=== PATIENT | male | born 1955 | race Hispanic/Latino ===

== ENCOUNTER 2019-01-30 06:17 | Day surgery (SDC) | payer BC ==
[2019-01-28 12:59] VITALS: BP 112/68
[2019-01-28 13:09] LABS: BASOPHILS % (AUTO) 0.4 % (0.0-5.0); EOSINOPHILS % (AUTO) 1.1 % (0.0-8.0); HEMATOCRIT 44.9 % (42-54); LYMPHOCYTES % (AUTO) 25.2 % (21.0-51.0); MEAN CORPUSCULAR HEMOGLOBIN 30.2 pg (27.0-33.0); MEAN CORPUSCULAR HGB CONC 33.4 g/dL (32.0-36.0); MEAN CORPUSCULAR VOLUME 90.4 fL (79-99); MONOCYTES % (AUTO) 10.6 % (3.0-13.0); NEUTROPHILS % (AUTO) 62.7 % (40.0-77.0); PLATELET COUNT (AUTO) 202 K/uL (130-400); RED BLOOD CELL COUNT(AUTO) 4.96 MIL/uL (4.50-6.20); RED CELL DISTRIBUTION WIDTH 13.1 % (11.0-15.5); WHITE BLOOD COUNT (AUTO) 8.4 K/uL (4.8-10.8)
[2019-01-28 13:17] LABS: APPEARANCE,URINE Clear (CLEAR); BILIRUBIN,URINE Negative (NEGATIVE); COLOR,URINE Yellow (YELLOW); GLUCOSE, URINE (UA) >=1000 mg/dL (NEGATIVE); KETONES,URINE Negative (NEGATIVE); LEUKOCYTE ESTERASE ,URINE Negative (NEGATIVE); NITRATE,URINE Negative (NEGATIVE); OCCULT BLOOD,URINE Negative (NEGATIVE); PROTEIN,URINE Negative (NEGATIVE)
[2019-01-28 13:20] LABS: CREATININE 0.8 mg/dL (0.5-1.5); POTASSIUM 4.6 mmol/L (3.5-5.1)
[2019-01-28 13:22] LABS: INR 0.96 (0.85-1.15); PARTIAL THROMBOPLASTIN TIME 25.9 SEC (26.3-35.5); PROTHROMBIN TIME 10.1 SEC (9.6-11.6)
[2019-01-28 13:36] LABS: BACTERIA,URINE Rare /HPF (None Seen); RBC,URINE 0-1 /HPF (0-1); SQUAMOUS EPITHELIAL CELL,UR Rare /HPF (0-2); WBC,URINE 0-1 /HPF (0-1)
[~2019-01-30] VITALS: Ht 165.1 cm; Wt 69.0 kg
[2019-01-30] VITALS (22 sets, daily range): BP systolic 114–145; BP diastolic 63–81
[~2019-01-30 06:17] MED LIST: ASPI-1005 PO; ATOR40TA71 PO; ENAL5TAB PO; ISOS30TA6 PO; METF-444 PO
[2019-01-30] MEDS ORDERED: DAPA10TA PO (07:08)
[2019-01-30] MEDS ORDERED: SITA100T12 PO (07:08)
[2019-01-30] MEDS ORDERED: ASPI81TA40 PO (07:09)
--- NOTE | 2019-01-30 07:43 | NUR ---
PROCEDURE PT TAKEN TO PUBLIC SPEAKER FOR SCHEDULED PROCEDURE VIA BED,NO DISTRESS NOTED. NO FAMILY AT BEDSIDE AT THIS TIME
[2019-01-30] MEDS ORDERED: VERAPAMIL HCL 2.5 MG/ML VIAL ONE (07:45)
[2019-01-30] MEDS ORDERED: HEPARIN SODIUM 1000UNIT/ML 10ML VIAL ONE (07:45)
[2019-01-30] MEDS ORDERED: NITROGLYCERIN 5 MG/ML 10 ML VIAL IV ONE (07:46)
[2019-01-30] MEDS ORDERED: LIDOCAINE HCL 2% 20ML ONE (07:46)
[2019-01-30] MEDS ORDERED: IOHEXOL-350 50ML VIAL IV ONE (07:46)
[2019-01-30] MEDS ORDERED: BIVALIRUDIN 250 MG/VIAL IV ONE (07:47)
[2019-01-30] MEDS ORDERED: IOHEXOL 350 MG/ML 100ML INFUS..BTL IV ONE (08:00)
[2019-01-30] MEDS ORDERED: SODIUM CHLORIDE 0.9% 1000ML 1,000 ML IV SCH ×2 (08:00→10:02)
[2019-01-30] MEDS ORDERED: ASPIRIN 81MG TAB.CHEW ONE (08:52)
[2019-01-30] MEDS ORDERED: TICAGRELOR 90 MG TABLET ONE (08:52)
[2019-01-30] MEDS ORDERED: IOHEXOL-350 75 ML VIAL IV ONE (09:18)
[2019-01-30] MEDS ORDERED: GLUCAGON 1MG KIT 1 MG ML IM PRN (10:15)
[2019-01-30] MEDS ORDERED: NITROGLYCERIN 0.4 MG SL TAB SL PRN (10:15)
[2019-01-30] MEDS ORDERED: METOPROLOL TARTRATE 1 MG/ML 5ML VIAL IV PRN (10:15)
[2019-01-30] MEDS ORDERED: DEXTROSE 50%-WATER 50 ML DISP.SYRIN IV PRN (10:15)
--- NOTE | 2019-01-30 10:20 | NUR ---
POST RECEIVED PT BACK FROM [facility], S/P [facility] WITH STENT PLACEMENT X 2, RIGHT RADIAL WITH TBAND IN PLACE WITH 11ML AIR PER REPORT. NO BLEEDING OR HEMATOMA ., RIGHT GROIN WITH 7FRENCH SHEATH IN PLACE. SEE POST CATH ASSESSMENT, VS STABLE ON ARRIVAL. PLAN OF CARE DISCUSS WITH PATIENT/ SPOUSE. INSTRUCTED TO KEEP BEDREST UNTIL CLEARED BY NURSE. INSTRUCTED PATIENT /SPOUSE TO CALL NURSE IF HE NEEDS ANYTHING . CALL LIGHT WITHIN REACH
--- NOTE | 2019-01-30 11:00 | NUR ---
TBAND TOTAL AIR IN T- BAND 11ML WHEN PATIENT ARRIVED - 2ML REMOVED TOTAL NOW 9ML- NO BLEEDING OR HEMATOMA TO SITE, PT MILLA WELL.
[2019-01-30] MEDS ORDERED: ATROPINE SULFATE 0.1 MG/ML 10 ML SYG IVP ONE (11:04)
--- NOTE | 2019-01-30 11:20 | NUR ---
TBAND TOTAL AIR 9ML , REMOVED 2 ML = NOW 7ML, NO BLEEDING OR HEMATOMA TO SITE, PT MILLA WELL
[2019-01-30] MEDS ORDERED: INSULIN HUMULIN R 100 UNIT/ML 3ML SQ SCH (11:30)
--- NOTE | 2019-01-30 11:35 | NUR ---
TBAND TOTAL AIR 7ML , REMOVED 2 ML = 5ML NOW , NO BLEEDING OR HEMATOMA TO SITE, PT MILLA WELL
--- NOTE | 2019-01-30 11:48 | NUR ---
line HEMOSTASIS ACHIEVED AFTER LINE PULLED TO RIGHT GROIN. DSTAT IN PLACE. NO BLEEDING OR HEMATOMA. SEE POST CATH ASSESSMENT
--- NOTE | 2019-01-30 11:50 | NUR ---
TBAND TOTAL AIR 5ML , REMOVED 2 ML = 3ML NOW , NO BLEEDING NO HEMATOMA , PT MILLA WELL
--- NOTE | 2019-01-30 12:05 | NUR ---
TBAND TOTAL AIR 3 ML , REMOVED 2ML = 1 ML, NO BLEEDING OR HEMATOMA, PT MILLA WELL
--- NOTE | 2019-01-30 12:25 | NUR ---
TBAND TOTAL AIR 1 ML, REMOVED 1 ML. NO BLEEDING OR HEMATOMA NOTED. PT MILLA WELL. STERILE DRESSING APPLIED TO RIGHT RADIAL.
--- NOTE | 2019-01-30 14:14 | NUR ---
REPORT REPORT GIVEN TO JEREMY VAZQUEZ RN TO RESUME CARE OF PATIENT
--- NOTE | 2019-01-30 18:00 | NUR ---
PT LEFT VIA WHEELCHAIR IN PVT CAR. D/C INSTRUCTION AND SCRIPT GIVEN TO WITH F/U APPT. NO COMPLICATION TO SITE, IS DRY AND INTACT, NO HEMATOMA, NO BLEEDING, PULSES INTACT.
== END 2019-01-30 18:00 | disposition home or self-care (01) ==
LOC: DAH 06:17
PROVIDERS: ATTEND Internal Medicine Cardiovascular Disease
DX: I25.118 Atherosclerotic heart disease of native coronary artery with other forms of angina pectoris (principal); I10 Essential (primary) hypertension; I25.2 Old myocardial infarction; E78.49 Other hyperlipidemia; E11.9 Type 2 diabetes mellitus without complications; Z79.84 Long term (current) use of oral hypoglycemic drugs; Z79.899 Other long term (current) drug therapy; Z79.82 Long term (current) use of aspirin; Z79.01 Long term (current) use of anticoagulants; Z82.49 Family history of ischemic heart disease and other diseases of the circulatory system; Z83.3 Family history of diabetes mellitus
CPT/HCPCS: 36415; 71045; 80048; 81001; 82948 ×2; 85025; 85610; 85730; 93005; 93458; A4215; A4216; A4221; A4222; A4223 ×3; A4606; C1725 ×2; C1769 ×3; C1874 ×2; C1887; C1894 ×3; C9600; C9601; J0583; J1644 ×3; J3490 ×3; J7030; Q9965 ×2; Q9967 ×2; J0461

== ENCOUNTER → 2019-03-10 | Outpatient (CLI) | payer BC ==
[~2019-03-10] MED LIST changes: -ASPI-1005 PO; +ASPI81TA40 PO; +DAPA10TA PO; +SITA100T12 PO
== END | disposition home or self-care (01) ==
LOC: RAH 11:41
PROVIDERS: ATTEND Internal Medicine Cardiovascular Disease
DX: I25.10 Atherosclerotic heart disease of native coronary artery without angina pectoris (principal); Z95.5 Presence of coronary angioplasty implant and graft
CPT/HCPCS: 71250

== ENCOUNTER → 2019-03-19 | Outpatient (CLI) | payer BC ==
[~2019-03-19] MED LIST changes: +ALBUTEROL SULFATE 0.083% 2.5 MG/3 ML INH IH ONE
== END | disposition home or self-care (01) ==
LOC: RESP 08:59
PROVIDERS: ATTEND Internal Medicine Cardiovascular Disease
DX: R06.02 Shortness of breath (principal)
CPT/HCPCS: 94060; 94727; 94729

== ENCOUNTER 2024-02-04 14:12 | Emergency (ER) | payer BC, OTHER ==
[~2024-02-04] VITALS: Ht 162.6 cm; Wt 67.1 kg
[~2024-02-04 14:12] MED LIST changes: -ALBUTEROL SULFATE 0.083% 2.5 MG/3 ML INH IH ONE; +ENAL-87 PO; -ENAL5TAB PO; -ISOS30TA6 PO; +ISOS30TA92 PO
[2024-02-04 14:17] VITALS: TEMP 97.9
[2024-02-04 15:14] LABS: BASOPHILS # (AUTO) 0.03 K/uL (0.00-0.20); BASOPHILS % (AUTO) 0.4 % (0.0-5.0); EOSINOPHILS # (AUTO) 0.13 K/uL (0.00-0.70); EOSINOPHILS % (AUTO) 1.6 % (0.0-8.0); HEMATOCRIT 37.3 % (42-54); IMMATURE GRANULOCYTE ABSOLUTE 0.02 K/uL (0-1); LYMPHOCYTES # (AUTO) 2.5 K/uL (1.0-4.8); LYMPHOCYTES % (AUTO) 30.5 % (21.0-51.0); MEAN CORPUSCULAR HEMOGLOBIN 30.3 pg (27.0-33.0); MEAN CORPUSCULAR HGB CONC 32.4 g/dL (32.0-36.0); MEAN CORPUSCULAR VOLUME 93.3 fL (79-99); MONOCYTES # (AUTO) 0.9 K/uL (0.1-1.0); MONOCYTES % (AUTO) 11.3 % (3.0-13.0); NEUTROPHILS # (AUTO) 4.6 K/uL (1.8-7.7); PLATELET COUNT (AUTO) 389 K/uL (130-400); RED CELL DISTRIBUTION WIDTH 13.9 % (11.0-15.5); WHITE BLOOD COUNT (AUTO) 8.3 K/uL (4.8-10.8)
[2024-02-04 15:25] LABS: POTASSIUM 4.6 mmol/L (3.5-5.1)
[2024-02-04 15:39] LABS: B-TYPE NATRIURETIC PEPTIDE 36 pg/mL (0-100)
[2024-02-04 17:30] VITALS: BP 116/59; PULSE 76; RESP 20; O2SAT 99
== END 2024-02-04 18:00 | disposition home or self-care (01) ==
LOC: EDH 14:12
DX: R07.89 Other chest pain (principal); E11.9 Type 2 diabetes mellitus without complications; E78.00 Pure hypercholesterolemia, unspecified; I10 Essential (primary) hypertension; Z79.82 Long term (current) use of aspirin; Z79.84 Long term (current) use of oral hypoglycemic drugs; Z79.899 Other long term (current) drug therapy
CPT/HCPCS: 36415; 71045; 80048; 82550; 83880; 84484; 85025; 93005